=== PATIENT | male | born 1950 | race Caucasian/White ===

== ENCOUNTER 2017-11-22 16:33 | Emergency (ER) | payer OTHER ==
[2017-11-22] MEDS ORDERED: TORADOL 30 MG VIAL IVP ONE (16:48)
[2017-11-22] MEDS ORDERED: NS 1000 ML 1,000 ML IV ONE (16:48)
[2017-11-22] MEDS ORDERED: ZOFRAN INJ 4 MG VIAL IVP ONE (16:48)
[2017-11-22] MEDS ORDERED: NS 1000 ML 1,000 ML ONE (16:49)
[2017-11-22] MEDS ORDERED: ZOFRAN INJ 4 MG VIAL ONE (16:50)
[2017-11-22] MEDS ORDERED: TORADOL 30 MG VIAL ONE (16:50)
[2017-11-22 17:01] VITALS: BMI 29.5
--- NOTE | 2017-11-22 17:22 | DR.UPM ---
HPI - Time Seen Time seen: 17:20 - PCP Primary Care Physician: TUNDE SAENZ IN [place] - Complaint Chief Complaint Doctors Comments: Patient admits to intermittent left flank pain for a while; today pain is severe. Chief Complaint:: LEFT FLANK PAIN WITH RADIATION TO LEFT GROIN LOWER ABD SINCE 1430 TODAY, VOMITED X3 AND NAUSEATED Self Treatment fo Chief Complaint: DRINKIN FLUIDS TO TRY TO URINATE - Source History Provided: Patient - Mode of Arrival Mode of Arrival: Ambulatory - Timing Onset of Chief Complaint: 11/22/17 PMH - PMH Past Medical History: Yes Past Medical History Comment: RENAL STONES AND THICK BLOOD Past Surgical History: Yes Past Surgical History Comment: HEMHROIDS - Family History History of Family Medical Conditions: Yes Family Medical History: Cancer, Hypertension - Social History Alcohol Use: None Do you use any recreational Drugs:: No Lives With: Spouse, Family Lives Where: Assisted Care - infectious screening In the last 2 months have you had wt loss of >10#?: NO Have you had fever, night sweats or hemotysis?: No Have you traveled outside the country in the last 6 months?: No Isolation: Standard ROS - Review of Systems Eyes: No Symptoms Reported ENTM: No Symptoms Reported Respiratoy: No Symptoms Reported Cardiovascular: No Symptoms Reported Gastrointestinal/Abdominal: No Symptoms Reported Genitourinary: No Symptoms Reported Neurological: No Symptoms Reported Musculoskeletal: No Symptoms Reported Integumentary: No Symptoms Reported Hematologic/Lymphatic: No Symptoms Reported Endocrine: No Symptoms Reported Psychiatric: No Symptoms Reported All Other Systems: Reviewed and Negative PE - Vital Signs Vitals: Temperature 97.2 F Pulse Rate 64 Respiratory Rate 18 Blood Pressure [Right Arm] 153/89 Blood Pressure 189/109 O2 Sat by Pulse Oximetry 97 Course - Treatment Treatment: Advised to follow up with a aeronautical engineering officer - Reevaluation 1st: Improved - Education/Counseling Educated On: Treatment, Diagnosis, Prognosis, Needs for Follow Up ROR - XRAY XRAY Interpreted by: Radiologist (CT Abd/Pel: A 4mm left UVJ stone causing mild hydronephrosis/hydroureter.) - Diagnosis Discharge Problem: Left mild hydronephrosis/hydroureter - Discharge Plan Condition: Stable - Follow ups/Referrals Follow ups/Referrals: [facility],None [Primary Care Provider] - 3 days - Instructions
--- NOTE | 2017-11-22 17:38 | CT ---
HISTORY: Left flank pain. Study: CT abdomen and pelvis without contrast Comparison: None. Technique: Multiple axial images of the abdomen and pelvis were obtained from the lung bases to the pubic symphy sis without the administration of IV contrast. Dose reduction techniques including Automated Exposur e Control (AEC) and adjustment of mA and kV were utilized. Findings: Limited study secondary to lack of IV and oral contrast. The visualized portions of the lung bases are unremarkable. Question of punctate and nonobstructing c alcifications within the right kidney. Marked perinephric stranding of the left kidney and ureter wit h associated mild hydronephrosis/hydroureter. There is a 4 mm stone within the left UVJ. Question of other faint and punctate calcifications within the left kidney. The liver, spleen, pancreas, and adre nal glands are unremarkable in their CT appearance. The gallbladder is unremarkable in its CT appeara nce. No significant mesenteric lymphadenopathy or stranding can be observed. No free fluid or free air is seen within the abdomen. Limited evaluation of the bowel secondary to lack of oral contrast an d collapse. The large and small bowel otherwise appear normal. The appendix appears normal. Degenera tive changes of the spine. No aggressive osseous lesions. Vascular calcifications without evidence of aneurysmal dilatation. IMPRESSION: 1. 4 mm left UVJ stone causing mild hydronephrosis/hydroureter. 2. Other chronic findings as above. Reported By:
[2017-11-22] MEDS ORDERED: TORADOL TAB PO ONE ×2 (18:44)
[2017-11-22 18:51] VITALS: BP 139/81
== END 2017-11-22 18:43 | disposition home or self-care (01) ==
LOC: ER 16:56
DX: N13.39 Other hydronephrosis (principal); N13.4 Hydroureter; R10.84 Generalized abdominal pain
CPT/HCPCS: 74176; 96365; 96374; 96375; 99282; 99283; A4222; J1885; J2405